=== PATIENT | female | born 1965 | race Caucasian/White ===

== ENCOUNTER 2019-03-12 17:35 | Emergency (ER) | payer SELFPAY ==
[~2019-03-12] VITALS: Ht 142.2 cm; Wt 49.9 kg
[2019-03-12 17:40] VITALS: BP 145/106
--- NOTE | 2019-03-12 18:06 | NUR ---
C/O INTERMITTENT LUI HAND PAIN X 1MONTH---PT ADDS WORKS [employer]---NO RECENT INJURY +2 RADIAL PULSE <3 SEC CAP REFILL
--- NOTE | 2019-03-12 19:41 | NUR ---
PT AMBULATED TO BED
[2019-03-12 20:06] VITALS: BP 142/97
--- NOTE | 2019-03-12 20:06 | NUR ---
Patient discharged with v/s stable. Written and verbal after care instructions given and explained. Patient alert, oriented and verbalized understanding of instructions. Ambulatory with steady gait. All questions addressed prior to discharge. ID band removed. Patient advised to follow up with PMD. Rx of Naprosyn given. Patient educated on indication of medication including possible reaction and side effects. Opportunity to ask questions provided and answered. Addendum: 03/12/19 at 2034 by [facility] PT DISCHARGED BY DR. NICOLE.
== END 2019-03-12 20:06 | disposition home or self-care (01) ==
LOC: MED 17:35
DX: S63.92XA Sprain of unspecified part of left wrist and hand, initial encounter (principal); S63.91XA Sprain of unspecified part of right wrist and hand, initial encounter; I10 Essential (primary) hypertension; Z88.1 Allergy status to other antibiotic agents; W22.8XXA Striking against or struck by other objects, initial encounter; Y93.71 Activity, boxing; Y92.89 Other specified places as the place of occurrence of the external cause; Y99.0 Civilian activity done for income or pay
CPT/HCPCS: 99283